=== PATIENT | male | born 1985 | race Caucasian/White ===

== ENCOUNTER 2019-09-02 17:51 | Emergency (ER) | payer MEDICAID ==
[~2019-09-02] VITALS: Ht 188 cm; Wt 98.6 kg
[~2019-09-02 17:51] MED LIST: CYCL-1 PO
[2019-09-02] MEDS ORDERED: HYDROcodone/acetaminophen 10/325mg tab PO ONE (18:45)
[2019-09-02] MEDS ORDERED: HYDR-4353 PO (20:05)
[2019-09-02 20:25] VITALS: BP 144/71
== END 2019-09-02 20:40 | disposition home or self-care (01) ==
LOC: ER 17:51
DX: S62.306A Unspecified fracture of fifth metacarpal bone, right hand, initial encounter for closed fracture (principal); M79.641 Pain in right hand; M79.89 Other specified soft tissue disorders; G89.29 Other chronic pain; F17.200 Nicotine dependence, unspecified, uncomplicated; Z72.89 Other problems related to lifestyle; Z79.899 Other long term (current) drug therapy; W22.8XXA Striking against or struck by other objects, initial encounter; Y93.89 Activity, other specified; Y92.521 Bus station as the place of occurrence of the external cause; Y99.8 Other external cause status
CPT/HCPCS: 26605; 73120; 73130; 99284

== ENCOUNTER 2019-09-06 21:00 | Emergency (ER) | payer MEDICAID ==
[~2019-09-06] VITALS: Ht 188 cm; Wt 100.0 kg
[~2019-09-06 21:00] MED LIST changes: +HYDR-4353 PO
[2019-09-06] MEDS ORDERED: HYDR-3965 PO (21:24)
[2019-09-06 21:44] VITALS: BP 128/70
== END 2019-09-06 21:48 | disposition home or self-care (01) ==
LOC: ER 21:00
DX: S62.306A Unspecified fracture of fifth metacarpal bone, right hand, initial encounter for closed fracture (principal); G89.29 Other chronic pain; Z79.899 Other long term (current) drug therapy; Z72.89 Other problems related to lifestyle; X58.XXXA Exposure to other specified factors, initial encounter; Y93.89 Activity, other specified; Y92.89 Other specified places as the place of occurrence of the external cause; Y99.8 Other external cause status
CPT/HCPCS: 29125; 99283

== ENCOUNTER 2019-09-10 21:29 | Emergency (ER) | payer MEDICAID ==
[~2019-09-10 21:29] MED LIST changes: +HYDR-3965 PO
--- NOTE | 2019-09-10 22:30 | NUR ---
Pt. seen by PA and treated before triage. Splint reaplied, pt. departed.
== END 2019-09-10 22:30 | disposition home or self-care (01) ==
LOC: ER 21:30
DX: M79.601 Pain in right arm (principal); G89.29 Other chronic pain; Z51.89 Encounter for other specified aftercare; Z72.89 Other problems related to lifestyle; Z79.899 Other long term (current) drug therapy
CPT/HCPCS: 99283

== ENCOUNTER 2019-11-20 09:44 | Emergency (ER) | payer MEDICAID ==
[~2019-11-20] VITALS: Ht 188 cm; Wt 105.0 kg
[~2019-11-20 09:44] MED LIST changes: -HYDR-3965 PO; -HYDR-4353 PO
[2019-11-20 09:52] VITALS: BP 118/76
== END 2019-11-20 10:22 | disposition home or self-care (01) ==
LOC: ER 09:44
DX: F15.10 Other stimulant abuse, uncomplicated (principal); R00.0 Tachycardia, unspecified; G89.29 Other chronic pain; Z72.89 Other problems related to lifestyle; Z98.890 Other specified postprocedural states
CPT/HCPCS: 99281

== ENCOUNTER 2019-11-26 13:19 | Emergency (ER) | payer MEDICAID ==
[~2019-11-26] VITALS: Ht 188 cm; Wt 92.7 kg
[2019-11-26 13:35] VITALS: BP 124/67
[2019-11-26] MEDS ORDERED: HYDR-3686 PO (13:57)
== END 2019-11-26 14:23 | disposition home or self-care (01) ==
LOC: ER 13:20
DX: F41.9 Anxiety disorder, unspecified (principal); G89.29 Other chronic pain; F11.90 Opioid use, unspecified, uncomplicated; Z79.899 Other long term (current) drug therapy; Z72.89 Other problems related to lifestyle
CPT/HCPCS: 99283

== ENCOUNTER 2019-12-07 21:40 | Emergency (ER) | payer MEDICAID ==
[~2019-12-07] VITALS: Ht 188 cm; Wt 93.2 kg
[~2019-12-07 21:40] MED LIST changes: +HYDR-3686 PO
--- NOTE | 2019-12-07 22:04 | NUR ---
PT IS 34 YO MALE C/O LOWER BACK PAIN 12/23, PAIN STARTED AFTER HE TRIPPED ON CURB, NO LOSS OF BOWEL/BLADDER, AMB WITH STEADY GAIT, PT ALSO STARTED OUT PT RECOVERY AT [facility], USED METH AND HEROIN TODAY, WAITING TO BE EVALUATED BY PROVIDER
[2019-12-07] MEDS ORDERED: ketorolac tromethamine 15mg/ml inj. IM ONE (22:20)
[2019-12-07 22:52] VITALS: BP 126/80
== END 2019-12-07 22:53 | disposition home or self-care (01) ==
LOC: ER 21:41
DX: M54.5 Low back pain (principal); G89.29 Other chronic pain; F11.90 Opioid use, unspecified, uncomplicated; Z72.89 Other problems related to lifestyle; Z79.899 Other long term (current) drug therapy
CPT/HCPCS: 96372; 99283; J1885

== ENCOUNTER 2019-12-25 11:00 | Emergency (ER) | payer MEDICAID ==
[~2019-12-25] VITALS: Ht 188 cm; Wt 92.7 kg
[~2019-12-25 11:00] MED LIST changes: -HYDR-3686 PO
[2019-12-25] MEDS ORDERED: clindamycin 600mg/D5W 50ml 50 ML IV STA (11:18)
[2019-12-25] MEDS ORDERED: normal saline 1000ML IV soln IV ONE (11:20)
[2019-12-25 12:00] LABS: BASOPHILS # (AUTO) 0.1 X10'3 (0-0.2); BASOPHILS % (AUTO) 0.6 % (0-1); EOSINOPHILS # (AUTO) 0.1 X10'3 (0-0.9); EOSINOPHILS % (AUTO) 0.9 % (0-6); HEMATOCRIT 37.4 % (42.0-52.0); HEMOGLOBIN 12.7 g/dl (14.0-17.9); LYMPHOCYTES % (AUTO) 20.4 % (21-51); MEAN CORPUSCULAR HEMOGLOBIN 29.6 PG (27.0-31.0); MEAN CORPUSCULAR VOLUME 86.9 FL (78-98); MEAN PLATELET VOLUME 8.7 FL (7.4-10.4); MONOCYTES # (AUTO) 1.1 X10'3 (0-0.9); MONOCYTES % (AUTO) 10.7 % (2-12); NEUTROPHILS # (AUTO) 6.6 X10'3 (1.8-7.7); NEUTROPHILS % (AUTO) 67.4 % (42-75); PLATELET COUNT 184 X10'3 (140-440); RED CELL DISTRIBUTION WIDTH 16.5 % (11.5-14.5); WHITE BLOOD COUNT 9.9 X10'3 (4.5-11.0)
[2019-12-25 12:16] LABS: ALANINE AMINOTRANSFERASE 153 U/L (12-78); ALBUMIN/GLOBULIN RATIO 0.5 (1.1-1.5); ALKALINE PHOSPHATASE 163 IU/L (46-116); ANION GAP 8 (8-16); ASPARTATE AMINO TRANSFERASE 147 U/L (10-37); BILIRUBIN,TOTAL 1.2 MG/DL (0.1-1.0); BLOOD UREA NITROGEN 10 MG/DL (7-18); BUN/CREATININE RATIO 10.5 (5.4-32.0); CALCIUM 8.4 MG/DL (8.5-10.1); CHLORIDE 97 MMOL/L (99-107); CREATININE 0.95 MG/DL (0.60-1.10); GLUCOSE 97 MG/DL (70-104); POTASSIUM 3.7 MMOL/L (3.5-5.1); SODIUM 131 MMOL/L (135-145); TOTAL PROTEIN 9.1 G/DL (6.4-8.2); eGFR > 90 ML/MIN
[2019-12-25] MEDS ORDERED: CEPH250T PO (12:52)
[2019-12-25] MEDS ORDERED: BACDS PO (12:52)
[2019-12-25 13:25] VITALS: BP 116/44
== END 2019-12-25 13:27 | disposition home or self-care (01) ==
LOC: ER 11:02
DX: S40.851A Superficial foreign body of right upper arm, initial encounter (principal); L02.413 Cutaneous abscess of right upper limb; G89.29 Other chronic pain; F15.90 Other stimulant use, unspecified, uncomplicated; F11.90 Opioid use, unspecified, uncomplicated; Z72.89 Other problems related to lifestyle; Z79.899 Other long term (current) drug therapy; W45.8XXA Other foreign body or object entering through skin, initial encounter; Y93.89 Activity, other specified; Y92.89 Other specified places as the place of occurrence of the external cause; Y99.8 Other external cause status
CPT/HCPCS: 36415; 73080; 80053; 83605; 84145; 85025; 87040; 87070; 87077; 87186; 96365; 99284; J7030; J3490